=== PATIENT | male | born 1990 | race Caucasian/White ===

== ENCOUNTER 2018-02-12 15:40 | Emergency (ER) | payer OTHER ==
[~2018-02-12] VITALS: Ht 180.3 cm; Wt 121.2 kg
[2018-02-12 15:42] VITALS: BP 179/111; PULSE 114; RESP 20; Ht 180.3 cm; Wt 121.2 kg
[2018-02-12] MEDS ORDERED: KETOROLAC 30 MG INJ IM STA (16:04)
[2018-02-12] MEDS ORDERED: ACET-141 PO (16:13)
[2018-02-12] MEDS ORDERED: IBUP-1544 PO (16:13)
[2018-02-12] MEDS ORDERED: CHLO118L3 TOP (16:16)
[2018-02-12] MEDS ORDERED: CLIN300C10 PO (16:16)
--- NOTE | 2018-02-12 19:52 | ERD ---
ER Documentation Chief Complaint Chief Complaint Dental pain since this am HPI 27-year-old male presents for dental pain times 1 day. States that he broke off part of his tooth while eating chicken. The cracked tooth is located in the left lower part of his mouth. He states that he has 9 out of 10 pain at the ayush e. He denies any fevers or chills [id number] Advil without relief. No other modifying factors noted. Patient states that he is unable to get to a dentist due to closures therefore he would like antibiotic as a prophylaxis. ROS All systems reviewed and are negative except as per history of present illness. Medications Home Meds Active Scripts Chlorhexidine Gluconate* (Chlorhexidine Gluconate*) 118 Ml Liquid, 10 ML TOP BID for tooth infection, #1 BOTTLE Prov:JOVANI CONTRERAS DO 02/12/18 Clindamycin Hcl* (Clindamycin Hcl*) 300 Mg Capsule, 300 MG PO Q8 for tooth infection for 5 Days, #15 CAP Prov:JOVANI CONTRERAS DO 02/12/18 Acetaminophen* (Acetaminophen*) 500 MG Extra Strength Tablet, 500 MG PO Q4H PRN for PAIN, #30 TAB Prov:JOVANI CONTRERAS DO 02/12/18 Ibuprofen* (Ibuprofen*) 800 Mg Tablet, 800 MG PO Q8 PRN for PAIN, #30 TAB Prov:JOVANI CONTRERAS DO 02/12/18 Allergies Allergies: Coded Allergies: Penicillins (Verified Allergy, Unknown, 02/12/18) PMhx/Soc Medical and Surgical Hx: pt denies Medical Hx, pt denies Surgical Hx Hx Alcohol Use: No Hx Substance Use: No Hx Tobacco Use: No Smoking Status: Never smoker Physical Exam Vitals Vital Signs Date Temp Pulse Resp B/P (MAP) Pulse Ox O2 O2 Flow FiO2 Time Delivery Rate 02/12/18 99.9 114 20 179/111 99 15:42 (133) Physical Exam Const: No acute distress Head: Atraumatic Eyes: Normal Conjunctiva ENT: Normal External Ears, Nose, oral examination shows a cracked left lower tooth. There is no discharge or signs of infection. Neck: Full range of motion. No meningismus. Resp: Clear to auscultation bilaterally Cardio: Regular rate and rhythm, no murmurs Skin: No petechiae or rashes Neur: Awake and alert Psych: Normal Mood and Affect Results 24 hrs Current Medications Medications Dose Sig/Lor Start Time Status Last (Trade) Ordered Route PRN Stop Time Admin Dose Reason Admin Ketorolac 30 mg ONCE STAT 02/12/18 DC 02/12/18 Tromethamine IM 16:04 16:14 (Toradol) 02/12/18 16:05 Procedures/MDM Medical Decision Making: Patient appear well on examination. Oral examination shows a left lower tooth cracked. There is no signs of discharge or infection. Given the patient can get to the dentist due to holiday closure patient was given prescription for antibiotics. Patient also given prescription for Motrin and Tylenol. He was also given prescription for chlorhexidine mouthwash. Patient advised to follow up with PCP in 1-2 days. Patient advised to return to ED for new or worsening symptoms. Patient stable on discharge from the ED. Disclaimer: Inadvertent spelling and grammatical errors are likely due to EHR/dictation software use and do not reflect on the overall quality of patient care. Also, please note that the electronic time recorded on this note does not necessarily reflect the actual time of the patient encounter. Departure Diagnosis: Primary Impression: Toothache Condition: Fair Patient Instructions: Dental Pain Referrals: [facility] YOU HAVE RECEIVED A MEDICAL SCREENING EXAM AND THE RESULTS INDICATE THAT YOU DO NOT HAVE A CONDITION THAT REQUIRES URGENT TREATMENT IN THE EMERGENCY DEPARTMENT. FURTHER EVALUATION AND TREATMENT OF YOUR CONDITION CAN WAIT UNTIL YOU ARE SEEN IN YOUR DOCTORS OFFICE WITHIN THE NEXT 1-2 DAYS. IT IS YOUR RESPONSIBILITY TO MAKE AN APPOINTMENT FOR FOLOW-UP CARE. IF YOU HAVE A PRIMARY DOCTOR --you should call your primary doctor and schedule an appointment IF YOU DO NOT HAVE A PRIMARY DOCTOR YOU CAN CALL OUR PHYSICIAN REFERRAL HOTLINE AT IF YOU CAN NOT AFFORD TO SEE A PHYSICIAN YOU CAN CHOSE FROM THE FOLLOWING [facility] [id number] [facility] [facility] [address] [facility] [facility] [address] [facility] [facility] [address] [facility]. [facility] [address] [facility]. [facility]. [address] Additional Instructions: Call your primary care doctor TOMORROW for an appointment during the next 1-2 days.See the doctor sooner or return here if your condition worsens before your appointment time. Follow up with dentist in 1-2 days. JOVANI CONTRERAS DO Feb 12, 2018 19:52
== END 2018-02-12 16:21 | disposition home or self-care (01) ==
LOC: FTE 15:40
DX: K08.89 Other specified disorders of teeth and supporting structures (principal)
CPT/HCPCS: 96372; J1885; Z7502